=== PATIENT | male | born 1960 | race Hispanic/Latino ===

== ENCOUNTER → 2017-08-27 | Outpatient (CLI) | payer OTHER, MEDICARE ==
[~2017-08-27] MED LIST: BACL10TA PO; CETI10CA5 PO; DOXA1TAB2 PO; ERGO500014 PO; HYDROCORTISONE TP; LINA145C PO; METF500T6 PO; NIZO215C TP; OMEP20CA10 PO; SIMV5TAB6 PO; TRAM50TA4 PO; TRAZ-144 PO; TYL3 PO; VENL-62 PO
== END | disposition home or self-care (01) ==
LOC: OIH 16:35
PROVIDERS: ATTEND Family Medicine
DX: M19.012 Primary osteoarthritis, left shoulder (principal)
CPT/HCPCS: 73030

== ENCOUNTER → 2017-10-15 | Outpatient (CLI) | payer OTHER, MEDICARE | END | disposition home or self-care (01) | LOC: RAH 07:36 | PROVIDERS: ATTEND Family Medicine | DX: N40.1 Benign prostatic hyperplasia with lower urinary tract symptoms (principal); N50.82 Scrotal pain | CPT/HCPCS: 76700; 76870 ==

== ENCOUNTER 2017-11-28 08:44 | Day surgery (SDC) | payer OTHER, MEDICARE ==
[2017-11-26 15:33] VITALS: BP 157/90
[2017-11-26 16:01] LABS: BASOPHILS % (AUTO) 0.9 % (0.0-5.0); EOSINOPHILS % (AUTO) 1.1 % (0.0-8.0); HEMATOCRIT 42.1 % (42-54); LYMPHOCYTES % (AUTO) 19.9 % (21.0-51.0); MEAN CORPUSCULAR HEMOGLOBIN 27.8 pg (27.0-33.0); MEAN CORPUSCULAR HGB CONC 33.2 g/dL (32.0-36.0); MEAN CORPUSCULAR VOLUME 83.8 fL (79-99); MONOCYTES % (AUTO) 7.2 % (3.0-13.0); NEUTROPHILS % (AUTO) 70.9 % (40.0-77.0); PLATELET COUNT (AUTO) 303 K/uL (130-400); RED BLOOD CELL COUNT(AUTO) 5.03 MIL/uL (4.50-6.20); RED CELL DISTRIBUTION WIDTH 13.8 % (11.0-15.5); WHITE BLOOD COUNT (AUTO) 8.9 K/uL (4.8-10.8)
[2017-11-26 16:02] LABS: APPEARANCE,URINE Clear (CLEAR); BILIRUBIN,URINE Negative (NEGATIVE); COLOR,URINE Yellow (YELLOW); GLUCOSE, URINE (UA) Negative (NEGATIVE); KETONES,URINE Negative (NEGATIVE); LEUKOCYTE ESTERASE ,URINE Negative (NEGATIVE); NITRATE,URINE Negative (NEGATIVE); OCCULT BLOOD,URINE Negative (NEGATIVE); PROTEIN,URINE Negative (NEGATIVE); UROBILINOGEN,URINE 0.2 mg/dL (0.2-1.0)
[2017-11-26 16:03] LABS: CREATININE 0.9 mg/dL (0.5-1.5); POTASSIUM 3.6 mmol/L (3.5-5.1)
[2017-11-28] VITALS (20 sets, daily range): BP systolic 118–165; BP diastolic 76–95
[~2017-11-28] VITALS: Ht 167.6 cm; Wt 78.4 kg
[~2017-11-28 08:44] MED LIST changes: -TRAZ-144 PO; +TRAZ-185 PO; -TYL3 PO
[2017-11-28] MEDS ORDERED: LIDOCAINE HCL MPF 1% 5ML VIAL ONE (09:25)
[2017-11-28] MEDS ORDERED: GLYCOPYRROLATE 0.2 MG/ML 5 ML VIAL ONE (09:25)
[2017-11-28] MEDS ORDERED: LIDOCAINE HCL 4% LTA SOL 4 ML VIAL ONE (09:25)
[2017-11-28] MEDS ORDERED: LIDOCAINE PF 2% 5ML ABBOJECT ONE (09:25)
[2017-11-28] MEDS ORDERED: ROCURONIUM BROMIDE 10MG/1ML 5ML VL ONE (09:25)
[2017-11-28] MEDS ORDERED: LIDOCAINE HCL 2% JELLY 5 ML ONE (09:25)
[2017-11-28] MEDS ORDERED: DEXAMETHASONE SOD PHOSPHATE 10MG/ML 1ML VIAL ONE (09:25)
[2017-11-28] MEDS ORDERED: ROPIVACAINE 0.5% 5MG/ML 30ML IJ ONE (09:25)
[2017-11-28] MEDS ORDERED: MIDAZOLAM HCL 1 MG/ML 2ML VIAL ONE (09:25)
[2017-11-28] MEDS ORDERED: PROPOFOL 10 MG/ML 20ML VIAL IV ONE (09:25)
[2017-11-28] MEDS ORDERED: CEFAZOLIN SODIUM 1 GM VIAL ONE (09:25)
[2017-11-28] MEDS ORDERED: NEOSTIGMINE METHYLSULFATE 1MG/ML IV ONE (09:25)
[2017-11-28] MEDS ORDERED: FENTANYL CITRATE PF 50 MCG/1 ML 5ML AMP IV ONE (09:26)
[2017-11-28] MEDS ORDERED: PHENYLEPHRINE HCL 10 MG/ML 1ML VIAL IV ONE (09:27)
[2017-11-28] MEDS ORDERED: SODIUM CHLORIDE 0.9% 1000ML 1,000 ML IV ONE (09:44)
[2017-11-28] MEDS ORDERED: MEPERIDINE-PF 25 MG/ML SYG ONE (11:12)
[2017-11-28] MEDS ORDERED: TYL3 PO (12:24)
== END 2017-11-28 13:30 | disposition home or self-care (01) ==
LOC: DAH 08:44
PROVIDERS: ATTEND Surgery
DX: R10.32 Left lower quadrant pain (principal); N40.0 Benign prostatic hyperplasia without lower urinary tract symptoms; K59.09 Other constipation; E78.5 Hyperlipidemia, unspecified; M19.90 Unspecified osteoarthritis, unspecified site; E66.3 Overweight; Z98.890 Other specified postprocedural states; Z79.899 Other long term (current) drug therapy; Z83.3 Family history of diabetes mellitus; E55.9 Vitamin D deficiency, unspecified
CPT/HCPCS: 36415; 49520; 80048; 81003; 82948 ×2; 85025; A4450; A4452; A4930 ×2; C1729; J0690; J1100; J2001; J2175; J2250; J2370; J2704; J2710; J2795; J3010; J3490 ×3; J7030 ×2; 49000; 49999

== ENCOUNTER → 2019-11-23 | Outpatient (CLI) | payer OTHER, MEDICARE ==
[~2019-11-23] MED LIST changes: +METF-444 PO; -METF500T6 PO; -OMEP20CA10 PO; +OMEP20CA12 PO; +SIMV5TAB58 PO; -SIMV5TAB6 PO; +TYL3 PO
== END | disposition home or self-care (01) ==
LOC: RAH 13:51
PROVIDERS: ATTEND Family Medicine
DX: K40.90 Unilateral inguinal hernia, without obstruction or gangrene, not specified as recurrent (principal); Z98.890 Other specified postprocedural states
CPT/HCPCS: 76882

== ENCOUNTER 2020-05-07 16:18 | Observation (INO) | payer OTHER, MEDICARE ==
[~2020-05-07] VITALS: Ht 162.6 cm; Wt 77.9 kg
[2020-05-07 16:49] LABS: BASOPHILS % (AUTO) 0.8 % (0.0-5.0); EOSINOPHILS % (AUTO) 1.5 % (0.0-8.0); HEMATOCRIT 43.3 % (42-54); LYMPHOCYTES % (AUTO) 19.2 % (21.0-51.0); MEAN CORPUSCULAR HGB CONC 32.1 g/dL (32.0-36.0); MEAN CORPUSCULAR VOLUME 84.2 fL (79-99); MONOCYTES % (AUTO) 9.5 % (3.0-13.0); NEUTROPHILS % (AUTO) 68.1 % (40.0-77.0); PLATELET COUNT (AUTO) 337 K/uL (130-400); RED BLOOD CELL COUNT(AUTO) 5.14 MIL/uL (4.50-6.20); RED CELL DISTRIBUTION WIDTH 12.8 % (11.0-15.5); WHITE BLOOD COUNT (AUTO) 9.1 K/uL (4.8-10.8)
[2020-05-07 17:03] LABS: INR 0.92 (0.85-1.15)
[2020-05-07 17:06] LABS: CREATININE 1.1 mg/dL (0.5-1.5); POTASSIUM 4.1 mmol/L (3.5-5.1)
[2020-05-07 17:07] LABS: ALBUMIN 3.8 g/dL (3.5-5.0); BILIRUBIN,TOTAL 0.3 mg/dL (0.2-1.0); TOTAL PROTEIN, SERUM 7.8 g/dL (6.0-8.3)
[2020-05-07 17:17] LABS: B-TYPE NATRIURETIC PEPTIDE 13 pg/mL (0-100)
[2020-05-07] MEDS ORDERED: SODIUM CHLORIDE 0.9% 1000ML 1,000 ML IV ONE (17:38)
[2020-05-07 17:51] LABS: APPEARANCE,URINE Clear (CLEAR); BILIRUBIN,URINE Negative (NEGATIVE); COLOR,URINE Yellow (YELLOW); GLUCOSE, URINE (UA) >=1000 mg/dL (NEGATIVE); KETONES,URINE Negative (NEGATIVE); LEUKOCYTE ESTERASE ,URINE Negative (NEGATIVE); NITRATE,URINE Negative (NEGATIVE); OCCULT BLOOD,URINE Negative (NEGATIVE); PROTEIN,URINE Negative (NEGATIVE); UROBILINOGEN,URINE 0.2 mg/dL (0.2-1.0)
[2020-05-07 17:59] LABS: AMPHET/METH SCREEN,URINE NEGATIVE (NEGATIVE); BARBITURATE SCREEN, URINE NEGATIVE (NEGATIVE); BENZODIAZEPINES SCREEN,URINE NEGATIVE (NEGATIVE); CANNABINOID SCREEN,URINE NEGATIVE (NEGATIVE); COCAINE SCREEN,URINE NEGATIVE (NEGATIVE); OPIATE SCREEN,URINE NEGATIVE (NEGATIVE); PHENCYCLIDINE SCREEN,URINE NEGATIVE (NEGATIVE)
[2020-05-07 18:01] LABS: BACTERIA,URINE Rare /HPF (None Seen); RBC,URINE 0-1 /HPF (0-1)
[2020-05-07] MEDS ORDERED: MORPHINE SULFATE 2 MG/ML 1ML SYG IV PRN (20:15)
[2020-05-07] MEDS ORDERED: LACTULOSE 20 GM/30 ML UDCUP PO PRN (20:15)
[2020-05-07] MEDS ORDERED: HYDRALAZINE HCL 20 MG/ML VIAL IV PRN (20:15)
[2020-05-07] MEDS ORDERED: LIDOCAINE HCL-MPF 1% 2ML VIAL IV PRN (20:15)
[2020-05-07] MEDS ORDERED: DiphenhydrAMINE HCL 50 MG/ML VIAL IV PRN (20:15)
[2020-05-07] MEDS ORDERED: ACETAMINOPHEN 325 MG TAB PO PRN (20:15)
[2020-05-07] MEDS ORDERED: POTASSIUM CHLORIDE 10% ELIXIR 20 MEQ/15 ML UDCUP PO PRN (20:15)
[2020-05-07] MEDS ORDERED: POTASSIUM CHLORIDE 20MEQ/100ML 100 ML IV PRN (20:15)
[2020-05-07] MEDS ORDERED: FAMOTIDINE 20MG TAB 20 MG TAB ONE (20:41)
[2020-05-07] MEDS: FAMOTIDINE 20MG TAB 20 MG TAB PO SCH (21:00)
[2020-05-07] MEDS: INSULIN HUMULIN R 100 UNIT/ML 3ML SQ SCH (21:00)
[2020-05-07] MEDS: SODIUM CHLORIDE 0.9% 1000ML 1,000 ML IV SCH (23:56)
[2020-05-08] VITALS (8 sets, daily range): BP systolic 113–154; BP diastolic 64–82
[2020-05-08] MEDS ORDERED: METF-444 PO (00:42)
[2020-05-08] MEDS ORDERED: SIMV10TA97 PO (00:42)
[2020-05-08] MEDS ORDERED: LISI10TA7 PO (00:42)
[2020-05-08] MEDS ORDERED: FENO145T26 PO (00:42)
[2020-05-08] MEDS ORDERED: SITA100T12 PO (00:42)
[2020-05-08] MEDS ORDERED: GABA-529 PO (00:42)
[2020-05-08] MEDS ORDERED: GLIP5TAB11 PO (00:42)
[2020-05-08] MEDS ORDERED: HYDR-3421 PO (00:42)
[2020-05-08] MEDS ORDERED: FLU VACC QS2020-21(6MOS UP)/PF 60 MCG/0.5 ML ML IM ONE (05:00)
[2020-05-08 05:22] LABS: BASOPHILS % (AUTO) 1.1 % (0.0-5.0); EOSINOPHILS % (AUTO) 2.2 % (0.0-8.0); HEMATOCRIT 38.3 % (42-54); LYMPHOCYTES % (AUTO) 30.3 % (21.0-51.0); MEAN CORPUSCULAR HEMOGLOBIN 27.3 pg (27.0-33.0); MEAN CORPUSCULAR HGB CONC 32.6 g/dL (32.0-36.0); MEAN CORPUSCULAR VOLUME 83.6 fL (79-99); MONOCYTES % (AUTO) 9.6 % (3.0-13.0); NEUTROPHILS % (AUTO) 55.8 % (40.0-77.0); PLATELET COUNT (AUTO) 322 K/uL (130-400); RED BLOOD CELL COUNT(AUTO) 4.58 MIL/uL (4.50-6.20); RED CELL DISTRIBUTION WIDTH 12.5 % (11.0-15.5); WHITE BLOOD COUNT (AUTO) 7.2 K/uL (4.8-10.8)
[2020-05-08 05:49] LABS: MAGNESIUM 1.7 mg/dL (1.80-2.40); POTASSIUM 3.7 mmol/L (3.5-5.1); THYROID STIMULATING HORMONE 2.05 uIU/mL (0.36-3.74)
[2020-05-08] MEDS: SODIUM CHLORIDE 0.9% 1000ML 1,000 ML IV SCH ×2 (06:01→16:16)
[2020-05-08] MEDS: INSULIN HUMULIN R 100 UNIT/ML 3ML SQ SCH ×4 (06:08→21:19)
[2020-05-08] MEDS ORDERED: MAGNESIUM 2GM PREMIX 50ML 50 ML IV PRN ×2 (06:15→16:15)
[2020-05-08] MEDS: LISINOPRIL 10 MG TABLET PO SCH (08:52)
[2020-05-08] MEDS: FAMOTIDINE 20MG TAB 20 MG TAB PO SCH ×2 (08:52→20:39)
[2020-05-08] MEDS: GABAPENTIN 100 MG CAPSULE PO SCH ×3 (08:53→20:39)
[2020-05-08] MEDS: FENOFIBRATE NANOCRYSTALLIZED 145 MG TAB PO SCH (09:42)
[2020-05-08] MEDS ORDERED: DEXTROSE 50%-WATER 50 ML DISP.SYRIN IV PRN (16:15)
[2020-05-08] MEDS ORDERED: GLUCAGON 1MG KIT 1 MG ML IM PRN (16:15)
--- NOTE | 2020-05-08 18:45 | NUR ---
JAZLYN QUINONES spoke with patient. He states he lives alone. No home services. DME: [employer], glucometer(uses insulin). Patient is able to complete ADL's independently and drives. He did inform JONI that he also has others drive him when he is not feeling well. PCP is Dr. Kelley. Metalizing Supervisor is Dr. Mehta. Pharmacy is [facility] located on [address]. No safety issues voiced regarding returning home after discharge. DCP is home. Addendum: 05/08/20 at 1847 by MORGAN SOFIA Amended: Links added. Addendum: 05/08/20 at 185 by MORGAN WILSON PREVIOUS INITIAL ASSESSMENT INCORRECT SW spoke to patient's girlfriend, Pippa Rivero. Patient lives alone but patient will go stay with girlfriend once he is discharged from the hospital. Patient has no home health but has PHC with [facility] X 21 hours a week. DME: shower chair. Patient is able to complete ADL's independently and drives. PCP is Dr. Pfeiffer. Pharmacy is [facility] located on [address]. No safety concerns voiced regarding patient returning home. DCP is home.
--- NOTE | 2020-05-08 18:58 | NUR ---
CORRECT INITIAL SW spoke to patient's girlfriend, Pippa Rivero. Patient lives alone but patient will go stay with girlfriend once he is discharged from the hospital. Patient has no home health but has PHC with [facility] X 21 hours a week. DME: shower chair. Patient is able to complete ADL's independently and drives. PCP is Dr. Pfeiffer. Pharmacy is [facility] located on [address]. No safety concerns voiced regarding patient returning home. DCP is home.
[2020-05-08] MEDS: HYDROXYZINE HCL 25 MG TABLET PO SCH (20:39)
[2020-05-08] MEDS: SIMVASTATIN 10 MG TABLET PO SCH (20:39)
[2020-05-09 03:00] VITALS: BP 127/80
[2020-05-09 04:40] LABS: BASOPHILS % (AUTO) 0.8 % (0.0-5.0); EOSINOPHILS % (AUTO) 1.8 % (0.0-8.0); HEMATOCRIT 40.8 % (42-54); LYMPHOCYTES % (AUTO) 20.3 % (21.0-51.0); MEAN CORPUSCULAR HEMOGLOBIN 26.9 pg (27.0-33.0); MEAN CORPUSCULAR HGB CONC 32.1 g/dL (32.0-36.0); MEAN CORPUSCULAR VOLUME 83.8 fL (79-99); MONOCYTES % (AUTO) 9.5 % (3.0-13.0); NEUTROPHILS % (AUTO) 66.8 % (40.0-77.0); PLATELET COUNT (AUTO) 324 K/uL (130-400); RED BLOOD CELL COUNT(AUTO) 4.87 MIL/uL (4.50-6.20); RED CELL DISTRIBUTION WIDTH 12.7 % (11.0-15.5); WHITE BLOOD COUNT (AUTO) 8.4 K/uL (4.8-10.8)
[2020-05-09 05:03] LABS: ALBUMIN 3.2 g/dL (3.5-5.0); BILIRUBIN,TOTAL 0.3 mg/dL (0.2-1.0); CREATININE 0.9 mg/dL (0.5-1.5); MAGNESIUM 2.3 mg/dL (1.80-2.40); POTASSIUM 3.5 mmol/L (3.5-5.1); TOTAL PROTEIN, SERUM 6.7 g/dL (6.0-8.3)
[2020-05-09] MEDS: INSULIN HUMULIN R 100 UNIT/ML 3ML SQ SCH ×5 (06:51→22:16)
[2020-05-09 08:00] VITALS: BP 106/62
[2020-05-09] MEDS: LISINOPRIL 10 MG TABLET PO SCH (09:09)
[2020-05-09] MEDS: ASPIRIN 81MG TAB.CHEW PO SCH (09:10)
[2020-05-09] MEDS: POTASSIUM CHLORIDE 20 MEQ ERTAB PO PRN ×2 (09:10→12:04)
[2020-05-09] MEDS: GABAPENTIN 100 MG CAPSULE PO SCH ×3 (09:10→22:13)
[2020-05-09] MEDS: FAMOTIDINE 20MG TAB 20 MG TAB PO SCH ×2 (09:11→22:12)
[2020-05-09] MEDS: ENOXAPARIN SODIUM 40 MG/0.4 ML SYRINGE SQ SCH (09:11)
[2020-05-09] MEDS: FENOFIBRATE NANOCRYSTALLIZED 145 MG TAB PO SCH (09:15)
[2020-05-09] MEDS: SODIUM CHLORIDE 0.9% 1000ML 1,000 ML IV SCH ×2 (09:16→22:27)
[2020-05-09 12:00] VITALS: BP 115/70
[2020-05-09 16:00] VITALS: BP_SYST 114; BP_SYST 121; BP_DIAS 56; BP_DIAS 69
[2020-05-09 19:52] VITALS: BP 130/75
[2020-05-09] MEDS: SIMVASTATIN 10 MG TABLET PO SCH (22:12)
[2020-05-09] MEDS: HYDROXYZINE HCL 25 MG TABLET PO SCH (22:12)
[2020-05-10] VITALS (7 sets, daily range): BP systolic 100–133; BP diastolic 59–92
--- NOTE | 2020-05-10 04:39 | NUR ---
Patient had no syncope episode this shift. Report given to 3rd floor nurse and patient transferred to [facility] as requested by hot wound spring production supervisor.
[2020-05-10] MEDS: INSULIN HUMULIN R 100 UNIT/ML 3ML SQ SCH ×4 (07:40→20:29)
--- NOTE | 2020-05-10 08:16 | NUR ---
REFUSED THE FLU VACCINE
[2020-05-10] MEDS: FAMOTIDINE 20MG TAB 20 MG TAB PO SCH ×2 (08:19→20:25)
[2020-05-10] MEDS: ENOXAPARIN SODIUM 40 MG/0.4 ML SYRINGE SQ SCH (08:20)
[2020-05-10] MEDS: LISINOPRIL 10 MG TABLET PO SCH (08:20)
[2020-05-10] MEDS: FENOFIBRATE NANOCRYSTALLIZED 145 MG TAB PO SCH (08:20)
[2020-05-10] MEDS: GABAPENTIN 100 MG CAPSULE PO SCH ×3 (08:20→20:28)
[2020-05-10] MEDS: ASPIRIN 81MG TAB.CHEW PO SCH (08:20)
[2020-05-10] MEDS: LEVETIRACETAM 500 MG TABLET PO SCH ×2 (10:25→20:28)
[2020-05-10] MEDS: SODIUM CHLORIDE 0.9% 1000ML 1,000 ML IV SCH ×2 (16:53→18:01)
--- NOTE | 2020-05-10 19:43 | NUR ---
Neuro Clearance At 183- Followed up with PMD regarding dc. Per PMD, nursing reported EEG was pending. Informed this was done since yesterday and read this AM. Informed of Dr. Hancock's clearance per Progress Note on 05/10 and cardio sign off per note on 05/09. At 1845- Reached out to charge nurse and informed of PMD's conversation. Per Charge nurse, PMD informed of pending EEG. Per CN, nurse notified PMD of clearance and was informed patient was not going to dc d/t no explanation of symptoms. At 1927- Reached out to Dr. Hancock to obtain clearance order. Clearance order received with request for attending to write for scripts for Keppra 500mg BID and outpatient neuro appointment. At 1932- Notified PMD of clearance order. Per PMD, will coordinate and dc.
[2020-05-10] MEDS: SIMVASTATIN 10 MG TABLET PO SCH (20:25)
[2020-05-10] MEDS: HYDROXYZINE HCL 25 MG TABLET PO SCH (20:28)
[2020-05-11 03:55] VITALS: BP 96/60
[2020-05-11] MEDS: INSULIN HUMULIN R 100 UNIT/ML 3ML SQ SCH ×3 (05:22→16:30)
[2020-05-11] MEDS: SODIUM CHLORIDE 0.9% 1000ML 1,000 ML IV SCH ×2 (05:23→13:57)
[2020-05-11 08:26] VITALS: BP 109/70
--- NOTE | 2020-05-11 09:20 | NUR ---
DISCUSSED PLAN OFR DC WITH MAT GIMENEZ REQUESTED. [employer] ARE PRIVATE PAY FOR ALL INSURANCES.WILL ADVISE PATIENT PT EVAL ORDERED/IN PROCESS. WILL WAIT FOR PT NOTES WILL SPEAK TO PTRE DC PLAN TO HOME ON ADMISSION, SIGNIFICANT OTHER STATED SHE IS READY AND WILLING TO ASSIT WILL ALL NEEDED CARE. Addendum: 05/11/20 at 0922 by GOLD ALVARENGA RN CM Amended: Links added.
[2020-05-11] MEDS: GABAPENTIN 100 MG CAPSULE PO SCH ×2 (09:32→13:48)
[2020-05-11] MEDS: FENOFIBRATE NANOCRYSTALLIZED 145 MG TAB PO SCH (09:32)
[2020-05-11] MEDS: LEVETIRACETAM 500 MG TABLET PO SCH (09:32)
[2020-05-11] MEDS: ASPIRIN 81MG TAB.CHEW PO SCH (09:32)
[2020-05-11] MEDS: FAMOTIDINE 20MG TAB 20 MG TAB PO SCH (09:32)
[2020-05-11] MEDS: LISINOPRIL 10 MG TABLET PO SCH (09:39)
[2020-05-11] MEDS: ENOXAPARIN SODIUM 40 MG/0.4 ML SYRINGE SQ SCH (09:40)
[2020-05-11] MEDS ORDERED: ASPI-1005 PO (10:49)
[2020-05-11] MEDS ORDERED: LEVE-43 PO (10:49)
[2020-05-11 14:45] VITALS: BP 110/72
--- NOTE | 2020-05-11 16:32 | NUR ---
AZUL MOSES, SENT REFERRAL/RX, CALL TO SONDRA, STATES GF CAN COME GET WKR NOW, CALL TO JARRED LAZARO, VERBALIZED UNDERSTANDING Addendum: 05/11/20 at 1639 by GOLD ALVARENGA RN CM Amended: Links added.
== END 2020-05-11 17:46 | disposition home or self-care (01) ==
LOC: EDH 16:18 → UNDOADMOB 19:00 → EDHIP 19:00 → 4DH 23:14 → 3CH 05-10 04:50 → 3DH 05-10 11:39
PROVIDERS: ADMIT Internal Medicine Critical Care Medicine; ATTEND Internal Medicine Critical Care Medicine
DX: R55 Syncope and collapse (principal); G89.29 Other chronic pain; M54.9 Dorsalgia, unspecified; G40.909 Epilepsy, unspecified, not intractable, without status epilepticus; F32.9 Major depressive disorder, single episode, unspecified; I10 Essential (primary) hypertension; E78.5 Hyperlipidemia, unspecified; E11.9 Type 2 diabetes mellitus without complications; N40.0 Benign prostatic hyperplasia without lower urinary tract symptoms; R29.6 Repeated falls; M19.90 Unspecified osteoarthritis, unspecified site; K59.00 Constipation, unspecified; Z79.84 Long term (current) use of oral hypoglycemic drugs; Z79.899 Other long term (current) drug therapy; Z90.49 Acquired absence of other specified parts of digestive tract; Z23 Encounter for immunization; W06.XXXA Fall from bed, initial encounter; Z91.81 History of falling; Y93.89 Activity, other specified; Y92.098 Other place in other non-institutional residence as the place of occurrence of the external cause; Y99.8 Other external cause status
CPT/HCPCS: 36415 ×3; 70450; 70551; 80048; 80053 ×2; 80305; 81001; 82550; 82948 ×15; 83735 ×2; 83880; 84100; 84443; 84484; 85025 ×3; 85610; 85730; 90471; 93005; 93306; 93356; 93880; 95816; 96361 ×4; 96365; 96372 ×7; 97039; 97116; 97161; 99291; G0378 ×6; G8978; G8979; G8980; G8981; G8982; G8983; J1650 ×3; J1815 ×8; J3475; J7030 ×2; Q2035; G0008

== ENCOUNTER 2020-09-12 10:44 | Observation (INO) | payer MEDICARE ==
[~2020-09-12] VITALS: Ht 162.6 cm; Wt 72.2 kg
[~2020-09-12 10:44] MED LIST changes: +ASPI-1005 PO; -BACL10TA PO; -CETI10CA5 PO; -DOXA1TAB2 PO; -ERGO500014 PO; +FENO145T26 PO; +GABA-529 PO; +GLIP5TAB11 PO; +HYDR-3421 PO; -HYDROCORTISONE TP; +LEVE-43 PO; -LINA145C PO; +LISI10TA7 PO; -NIZO215C TP; -OMEP20CA12 PO; +SIMV10TA97 PO; -SIMV5TAB58 PO; +SITA100T12 PO; -TRAM50TA4 PO; -TRAZ-185 PO; -TYL3 PO; -VENL-62 PO
[2020-09-12 11:32] LABS: BASOPHILS % (AUTO) 0.6 % (0.0-5.0); EOSINOPHILS % (AUTO) 2.3 % (0.0-8.0); HEMATOCRIT 38.1 % (42-54); LYMPHOCYTES % (AUTO) 21.4 % (21.0-51.0); MEAN CORPUSCULAR HEMOGLOBIN 27.7 pg (27.0-33.0); MEAN CORPUSCULAR HGB CONC 33.9 g/dL (32.0-36.0); MEAN CORPUSCULAR VOLUME 81.9 fL (79-99); NEUTROPHILS % (AUTO) 67.1 % (40.0-77.0); PLATELET COUNT (AUTO) 298 K/uL (130-400); RED BLOOD CELL COUNT(AUTO) 4.65 MIL/uL (4.50-6.20); RED CELL DISTRIBUTION WIDTH 12.6 % (11.0-15.5)
[2020-09-12 11:47] LABS: ALBUMIN 3.5 g/dL (3.5-5.0); BILIRUBIN,TOTAL 0.2 mg/dL (0.2-1.0); CREATININE 1.2 mg/dL (0.5-1.5); POTASSIUM 4.2 mmol/L (3.5-5.1); TOTAL PROTEIN, SERUM 7.1 g/dL (6.0-8.3)
[2020-09-12 12:06] LABS: INR 0.94 (0.85-1.15); PROTHROMBIN TIME 10.1 SEC (9.6-11.6)
[2020-09-12 12:08] LABS: PARTIAL THROMBOPLASTIN TIME 26.1 SEC (26.3-35.5)
[2020-09-12] MEDS: ASPIRIN 81MG TAB.CHEW PO SCH (14:00)
[2020-09-12] MEDS: CLOPIDOGREL BISULFATE 75 MG TAB PO SCH (14:00)
[2020-09-12] MEDS ORDERED: POTASSIUM CHLORIDE 20MEQ/100ML 100 ML IV PRN ×2 (14:15)
[2020-09-12] MEDS ORDERED: POTASSIUM CHLORIDE 20 MEQ ERTAB PO PRN (14:15)
[2020-09-12] MEDS ORDERED: MAGNESIUM 2GM PREMIX 50ML 50 ML IV PRN (14:15)
[2020-09-12] MEDS ORDERED: DEXTROSE 50%-WATER 50 ML DISP.SYRIN IV PRN (14:15)
[2020-09-12] MEDS ORDERED: GLUCAGON 1MG KIT 1 MG ML IM PRN (14:15)
[2020-09-12] MEDS ORDERED: LIDOCAINE HCL-MPF 1% 2ML VIAL IV PRN ×2 (14:15)
[2020-09-12] MEDS ORDERED: POTASSIUM CHLORIDE 10% ELIXIR 20 MEQ/15 ML UDCUP PO PRN (14:15)
[2020-09-12] MEDS: PANTOPRAZOLE SODIUM 40 MG TABLET.DR PO SCH (14:30)
[2020-09-12] MEDS ORDERED: IOHEXOL-350 75 ML VIAL IV ONE (16:07)
[2020-09-12 16:30] LABS: APPEARANCE,URINE Clear (CLEAR); BILIRUBIN,URINE Negative (NEGATIVE); COLOR,URINE Yellow (YELLOW); GLUCOSE, URINE (UA) >=1000 mg/dL (NEGATIVE); KETONES,URINE Negative (NEGATIVE); LEUKOCYTE ESTERASE ,URINE Negative (NEGATIVE); NITRATE,URINE Negative (NEGATIVE); OCCULT BLOOD,URINE Negative (NEGATIVE); PH,URINE 6.5 (5.0-8.0); PROTEIN,URINE Negative (NEGATIVE); UROBILINOGEN,URINE 0.2 mg/dL (0.2-1.0)
[2020-09-12 16:36] LABS: BACTERIA,URINE None Seen /HPF (None Seen); RBC,URINE None Seen /HPF (0-1); SQUAMOUS EPITHELIAL CELL,UR 0-2 /HPF (0-2); WBC,URINE None Seen /HPF (0-1)
[2020-09-12 16:38] LABS: AMPHET/METH SCREEN,URINE NEGATIVE (NEGATIVE); BARBITURATE SCREEN, URINE NEGATIVE (NEGATIVE); BENZODIAZEPINES SCREEN,URINE NEGATIVE (NEGATIVE); CANNABINOID SCREEN,URINE NEGATIVE (NEGATIVE); COCAINE SCREEN,URINE NEGATIVE (NEGATIVE); OPIATE SCREEN,URINE NEGATIVE (NEGATIVE); PHENCYCLIDINE SCREEN,URINE NEGATIVE (NEGATIVE)
[2020-09-12] MEDS ORDERED: PANTOPRAZOLE SODIUM 40 MG TABLET.DR ONE (18:51)
[2020-09-12] MEDS: ATORVASTATIN CALCIUM 20 MG TABLET PO SCH (21:00)
[2020-09-12] MEDS ORDERED: CLOPIDOGREL BISULFATE 75 MG TAB ONE (21:21)
[2020-09-12] MEDS ORDERED: ASPIRIN 81MG TAB.CHEW ONE (21:21)
[2020-09-12] MEDS ORDERED: ATORVASTATIN CALCIUM 20 MG TABLET ONE (21:21)
[2020-09-13] MEDS ORDERED: TAMS-1 PO (01:38)
[2020-09-13] MEDS ORDERED: OMEP20CA12 PO (01:38)
[2020-09-13 04:42] LABS: HEMOGLOBIN A1C 13.8 % (4.0-6.0)
[2020-09-13 05:15] LABS: CHOLESTEROL 150 mg/dL (<200); HDL CHOLESTEROL 42 mg/dL (29-71); LDL DIRECT 69 mg/dL (0-99); TRIGLYCERIDES 231 mg/dL (30-200)
[2020-09-13] MEDS ORDERED: ASPIRIN 81MG TAB.CHEW ONE (08:00)
[2020-09-13] MEDS ORDERED: PANTOPRAZOLE SODIUM 40 MG TABLET.DR ONE (08:01)
[2020-09-13] MEDS ORDERED: CLOPIDOGREL BISULFATE 75 MG TAB ONE (08:01)
[2020-09-13] MEDS: CLOPIDOGREL BISULFATE 75 MG TAB PO SCH (09:00)
[2020-09-13] MEDS: PANTOPRAZOLE SODIUM 40 MG TABLET.DR PO SCH ×2 (09:00→23:24)
[2020-09-13] MEDS: ASPIRIN 81MG TAB.CHEW PO SCH (09:00)
[2020-09-13 10:29] LABS: POTASSIUM 4.1 mmol/L (3.5-5.1)
[2020-09-13] MEDS: SODIUM CHLORIDE 0.9% 1000ML 1,000 ML IV SCH ×2 (12:30→22:11)
[2020-09-13] MEDS ORDERED: INSULIN HUMULIN R 100 UNIT/ML 3ML ONE ×3 (13:05→21:07)
[2020-09-13] MEDS ORDERED: SODIUM CHLORIDE 0.9% 1000ML 1,000 ML IV ONE (13:06)
[2020-09-13] MEDS: LISINOPRIL 5 MG TABLET PO SCH (15:20)
[2020-09-13] MEDS: TAMSULOSIN HCL 0.4 MG CAP.ER.24H PO SCH ×2 (15:21→22:11)
[2020-09-13] MEDS ORDERED: DEXTROSE 50%-WATER 50 ML DISP.SYRIN IV PRN (15:30)
[2020-09-13] MEDS ORDERED: GLUCAGON 1MG KIT 1 MG ML IM PRN (15:30)
[2020-09-13] MEDS: GLIPIZIDE XL 2.5MG TAB PO SCH (16:30)
[2020-09-13] MEDS ORDERED: INSULIN HUMULIN R 100 UNIT/ML 3ML SQ SCH (16:30)
[2020-09-13] MEDS: INSULIN HUMULIN R 100 UNIT/ML 3ML SQ SCH ×2 (16:30→21:00)
[2020-09-13] MEDS ORDERED: ACETAMINOPHEN 325 MG TAB PO PRN (16:30)
[2020-09-13] MEDS ORDERED: ACETAMINOPHEN 325 MG TAB ONE (16:34)
[2020-09-13] MEDS ORDERED: ATORVASTATIN CALCIUM 20 MG TABLET ONE (20:54)
[2020-09-13] MEDS: ATORVASTATIN CALCIUM 20 MG TABLET PO SCH (21:00)
[2020-09-13] MEDS ORDERED: INSULIN HUMULIN 70/30 100 UNIT/ML 3ML SQ ONE (21:06)
[2020-09-13] MEDS ORDERED: FENOFIBRATE NANOCRYSTALLIZED 145 MG TAB ONE (22:05)
[2020-09-13 22:31] VITALS: BP 119/74
[2020-09-14 00:20] VITALS: BP 106/61
[2020-09-14 04:09] VITALS: BP 106/61
[2020-09-14] MEDS: INSULIN HUMULIN R 100 UNIT/ML 3ML SQ SCH ×2 (06:20→11:30)
[2020-09-14 06:49] LABS: CREATININE 0.9 mg/dL (0.5-1.5); POTASSIUM 3.9 mmol/L (3.5-5.1)
[2020-09-14 07:25] VITALS: BP 111/68
[2020-09-14] MEDS: GLIPIZIDE XL 2.5MG TAB PO SCH (07:28)
[2020-09-14] MEDS ORDERED: CLOP75TA14 PO (07:50)
[2020-09-14] MEDS ORDERED: GLIP2.5T PO (07:50)
[2020-09-14] MEDS ORDERED: FENO145T PO (07:50)
[2020-09-14] MEDS ORDERED: ATOR20TA65 PO (07:50)
[2020-09-14] MEDS ORDERED: METF500T PO (07:54)
[2020-09-14] MEDS: SODIUM CHLORIDE 0.9% 1000ML 1,000 ML IV SCH (08:30)
[2020-09-14] MEDS: PANTOPRAZOLE SODIUM 40 MG TABLET.DR PO SCH (08:31)
[2020-09-14] MEDS: ASPIRIN 81MG TAB.CHEW PO SCH (08:31)
[2020-09-14] MEDS: CLOPIDOGREL BISULFATE 75 MG TAB PO SCH (08:31)
[2020-09-14] MEDS: LISINOPRIL 5 MG TABLET PO SCH (08:33)
[2020-09-14 11:06] VITALS: BP 120/59
[2020-09-14] MEDS ORDERED: FENOFIBRATE NANOCRYSTALLIZED 145 MG TAB PO SCH (22:00)
== END 2020-09-14 14:26 | disposition home or self-care (01) ==
LOC: EDH 10:44 → INTOOBSV 14:12 → OBSVTOIN 14:12 → EDHIP 14:12 → 3DH 09-13 20:17
PROVIDERS: ADMIT Internal Medicine Pulmonary Disease; ATTEND Internal Medicine Pulmonary Disease
DX: I65.22 Occlusion and stenosis of left carotid artery (principal); E11.65 Type 2 diabetes mellitus with hyperglycemia; I10 Essential (primary) hypertension; M54.2 Cervicalgia; G89.29 Other chronic pain; N40.0 Benign prostatic hyperplasia without lower urinary tract symptoms; E78.5 Hyperlipidemia, unspecified; M19.90 Unspecified osteoarthritis, unspecified site; E86.0 Dehydration; E87.1 Hypo-osmolality and hyponatremia; E78.00 Pure hypercholesterolemia, unspecified; Z86.73 Personal history of transient ischemic attack (TIA), and cerebral infarction without residual deficits; Z87.891 Personal history of nicotine dependence; Z91.81 History of falling; Z91.19 Patient's noncompliance with other medical treatment and regimen; Z90.49 Acquired absence of other specified parts of digestive tract; Z79.02 Long term (current) use of antithrombotics/antiplatelets; Z79.84 Long term (current) use of oral hypoglycemic drugs; Z79.899 Other long term (current) drug therapy
CPT/HCPCS: 36415 ×3; 70450; 70496; 70498; 70551; 80048 ×2; 80053; 80061; 80305; 81001; 82607; 82948 ×6; 83036; 84484 ×3; 85025; 85610; 85730; 92522; 92610; 93005; 93356; 96360; 96361 ×2; 97161; 99285; C8929; G0378 ×47; G8978; G8979; G8980; G8981; G8982; G8983; J1815 ×5; J7030 ×2; Q9967

== ENCOUNTER 2021-04-18 09:51 | Emergency (ER) | payer OTHER, MEDICARE ==
[~2021-04-18] VITALS: Ht 167.6 cm; Wt 72.6 kg
[2021-04-18 09:51] VITALS: BP 149/87
[~2021-04-18 09:51] MED LIST changes: -ASPI-1005 PO; +ATOR20TA65 PO; +CLOP75TA14 PO; +FENO145T PO; -FENO145T26 PO; -GABA-529 PO; +GLIP2.5T PO; -GLIP5TAB11 PO; -HYDR-3421 PO; -LEVE-43 PO; +LISI10TA24 PO; -LISI10TA7 PO; -METF-444 PO; +METF500T PO; +OMEP20CA12 PO; -SIMV10TA97 PO; -SITA100T12 PO; +TAMS-1 PO
== END 2021-04-18 12:35 | disposition left against medical advice (07) ==
LOC: EDH 09:51
DX: R21 Rash and other nonspecific skin eruption (principal); Z53.21 Procedure and treatment not carried out due to patient leaving prior to being seen by health care provider

== ENCOUNTER → 2023-04-02 | Outpatient (CLI) | payer MEDICARE ==
[~2023-04-02] MED LIST changes: +CLOP-31 PO; -CLOP75TA14 PO
== END | disposition home or self-care (01) ==
LOC: SHCH 08:05
PROVIDERS: ATTEND Internal Medicine Cardiovascular Disease
DX: I65.23 Occlusion and stenosis of bilateral carotid arteries (principal)
CPT/HCPCS: 93880